=== PATIENT | female | born 1935 | race Caucasian/White ===

== ENCOUNTER 2017-10-28 17:16 | Inpatient (IN) | payer MEDICARE, OTHER ==
[~2017-10-28] VITALS: Ht 165.1 cm; Wt 80.7 kg
[~2017-10-28 17:16] MED LIST: ARIP5TAB10 PO; ATOR40TA PO; DARI7.5T PO; FLUO-120 PO; LORA1TAB PO; TEMA22.53 PO
[2017-10-28] MEDS ORDERED: IV NS 0.9% 500 ML BAG IV ONE (17:30)
--- NOTE | 2017-10-28 17:32 | NUR ---
PT ERIC FROM [facility]. PER REPORT, PT IS ALTERED. AAOX4 UPON ASSESSMENT. ALSO HERE FOR POSSIBLE UTI. NO LAB WORKS PROVIDED. GOWNED AND PLACED ON MONITOR. STABLE VITALS. AWAITING MD MELTON.
--- NOTE | 2017-10-28 17:34 | NUR ---
IV LINE STARTED BLOOD DRAWN AND SENT TO LAB.
--- NOTE | 2017-10-28 17:35 | NUR ---
DR ROSADO AT BEDSIDE FOR EVAL.
[2017-10-28 17:40] LABS: BASOPHILS # (AUTO) 0.1 /CMM (0.0-0.2); EOSINOPHILS # (AUTO) 0.3 /CMM (0.0-0.7); EOSINOPHILS % (AUTO) 2.1 % (0.0-6.0); HEMATOCRIT 44 % (33-45); HEMOGLOBIN 15.3 g/dL (11.5-14.8); LYMPHOCYTES # (AUTO) 2.8 /CMM (0.8-4.8); LYMPHOCYTES % (AUTO) 21.2 % (20.0-44.0); MEAN CORPUSCULAR HEMOGLOBIN 32 PG (26.0-33.0); MEAN CORPUSCULAR HGB CONC 35 g/dl (31.0-36.0); MEAN CORPUSCULAR VOLUME 91 fL (82-100); MONOCYTES # (AUTO) 0.9 /CMM (0.1-1.30); MONOCYTES % (AUTO) 6.9 % (2.0-12.0); NEUTROPHILS % (AUTO) 68.8 % (43.0-81.0); PLATELET COUNT (AUTO) 292 /CMM (150-450); RDW COEFFICIENT OF VARIATION 13.1 (11.5-15.0); RED BLOOD CELL COUNT(AUTO) 4.87 MIL/uL (4.0-5.2); WHITE BLOOD COUNT (AUTO) 13.1 K/uL (4.3-11.0)
[2017-10-28] MEDS ORDERED: PROP40TA7 PO (17:41)
[2017-10-28] MEDS ORDERED: SOLI5TAB2 PO (17:41)
[2017-10-28] MEDS ORDERED: AMLO5TAB2 PO (17:41)
[2017-10-28] MEDS ORDERED: TEMA15CA PO (17:41)
[2017-10-28] MEDS ORDERED: LURA40TA PO (17:41)
[2017-10-28 17:48] LABS: APPEARANCE,URINE Cloudy (CLEAR); BILIRUBIN,URINE Negative (NEGATIVE); BLOOD, URINE Negative Ery/uL (NEGATIVE); COLOR,URINE Yellow (YELLOW); KETONES,URINE Negative (NEGATIVE); LEUKOCYTE ESTERASE ,URINE Trace (NEGATIVE); NITRITE, URINE Positive (NEGATIVE); PH,URINE 6.5 (5.0-8.0); PROTEIN,URINE Negative (NEGATIVE); UGLUCOSE Negative (NEGATIVE); UROBILINOGEN,URINE 0.2 EU/dL (0.2)
[2017-10-28 18:00] LABS: CALCIUM, SERUM 9.5 mg/dL (8.5-10.1); CARBON DIOXIDE 26 mmol/L (21-32); CHLORIDE 102 mmol/L (98-107); CREATININE 0.9 mg/dL (0.6-1.3); GLUCOSE 101 mg/dL (74-106); POTASSIUM 4.5 mmol/L (3.5-5.1); SODIUM SERUM 135 mmol/L (136-145); UREA NITROGEN, BLOOD 14 mg/dL (7-18)
--- NOTE | 2017-10-28 18:01 | NUR ---
RADIOLOGY AT BEDSIDE FOR CHEST XRAY.
[2017-10-28 18:02] LABS: INR 1.04 (0.87-1.13)
[2017-10-28 18:06] LABS: ALANINE AMINOTRANSFERASE 59 U/L (12-78); ALBUMIN 3.6 g/dL (3.4-5.0); ALKALINE PHOSPHATASE 167 U/L (46-116); ASPARTATE AMINOTRANSFERASE 75 U/L (15-37); BILIRUBIN,DIRECT 0.1 mg/dL (0.0-0.2); BILIRUBIN,TOTAL 0.6 mg/dL (0.2-1.0); TOTAL PROTEIN, SERUM 8.7 g/dL (6.4-8.2)
[2017-10-28 18:08] LABS: TROPONIN I < 0.017 ng/mL (0.00-0.056)
[2017-10-28 18:10] LABS: BACTERIA,URINE Many /HPF (None Seen); RBC,URINE 0-2 /HPF (0-2)
[2017-10-28 18:11] LABS: SQUAMOUS EPITHELIAL CELL,UR Few /HPF (None Seen)
--- NOTE | 2017-10-28 18:22 | NUR ---
REPORT GIVEN TO CHRISTINA. PT AWAITING TRANSFER TO FLOOR.
[2017-10-28] MEDS ORDERED: CEFTRIAXONE 1 G in IV D5W 50 ML IV SCH (19:00)
[2017-10-28] MEDS ORDERED: CEFTRIAXONE 1 G VIAL ONE (19:02)
--- NOTE | 2017-10-28 19:10 | NUR ---
CALLED [employer] GENERAL REPAIR MECHANIC WAS PAGED.
--- NOTE | 2017-10-28 19:43 | NUR ---
CALLED [employer], INTERPRETATIVE DANCER WAS PAGED.
[2017-10-28 20:10] VITALS: BP 164/66
--- NOTE | 2017-10-28 20:10 | NUR ---
RN NOTES RECEIVED PATIENT FROM ER FOR DX. AMS. PATIENT AO X 3, ABLE TO MAKE NEEDS KNOWN. AMBULATORY. SR HR 65. IV SITE PATENT, INTACT; FLUSHED. SKIN INTACT. SAFETY REMINDERS GIVEN. ORIENTED TO ROOM. ON LOW BED WITH BILATERAL UPPER SIDE RAILS UP. CALL DUNHAM WITHIN EASY REACH. WILL CONTINUE TO MONITOR.
[2017-10-28] MEDS ORDERED: ZOLPIDEM TARTRATE 5 MG TABLET PO PRN (21:00)
[2017-10-28] MEDS ORDERED: ONDANSETRON HCL/PF 4 MG/2 ML VIAL IVP PRN (21:00)
[2017-10-28] MEDS ORDERED: HYDROCODONE/APAP 5/325MG 1 EACH TABLET PO PRN (21:00)
[2017-10-28] MEDS ORDERED: MAG HYDROX/AL HYDROX/SIMETH 30 ML UDC PO PRN (21:00)
[2017-10-28] MEDS ORDERED: ACETAMINOPHEN 325 MG TABLET PO PRN (21:00)
[2017-10-28] MEDS ORDERED: Z GUARD REMEDY 2 OZ OINT TP PRN (21:00)
[2017-10-28] MEDS ORDERED: PROPRANOLOL HCL 40 MG TABLET PO SCH (21:00)
[2017-10-28] MEDS ORDERED: SOLIFENACIN SUCCINATE 5 MG TABLET PO SCH (22:00)
[2017-10-28] MEDS: TEMAZEPAM 15 MG CAPSULE PO SCH (22:17)
[2017-10-28] MEDS: ENOXAPARIN SODIUM 40 MG/0.4 ML DISP.SYRIN SQ SCH (22:21)
--- NOTE | 2017-10-28 23:00 | NUR ---
RN NOTES VERIFIED BY FIRE CONTROL TECHNICIAN THAT [facility] IS NOT AVAILABLE.
[2017-10-29] VITALS: BP 122/61
[2017-10-29 04:00] VITALS: BP 137/66
--- NOTE | 2017-10-29 06:00 | NUR ---
RN NOTES PATIENT ASLEEP, AROUSABLE. RESPIRATIONS EVEN. NO SIGNS OF PAIN NOTED. DUE MEDS GIVEN WITH NO ASE NOTED. NEEDS ATTENDED. ESCORTED TO BATHROOM NEEDED FOR SAFETY. SAFETY PRECAUTIONS AND COMFORT MEASURES IN PLACE. WILL GIVE REPORT TO DAY SHIFT FOR CONTINUITY OF CARE.
[2017-10-29 07:43] LABS: BASOPHILS # (AUTO) 0.1 /CMM (0.0-0.2); BASOPHILS % (AUTO) 0.7 % (0.0-2.0); EOSINOPHILS # (AUTO) 0.2 /CMM (0.0-0.7); EOSINOPHILS % (AUTO) 2.3 % (0.0-6.0); HEMATOCRIT 42 % (33-45); HEMOGLOBIN 14.5 g/dL (11.5-14.8); LYMPHOCYTES # (AUTO) 2.6 /CMM (0.8-4.8); LYMPHOCYTES % (AUTO) 24.4 % (20.0-44.0); MEAN CORPUSCULAR HEMOGLOBIN 32 PG (26.0-33.0); MEAN CORPUSCULAR HGB CONC 35 g/dl (31.0-36.0); MEAN CORPUSCULAR VOLUME 92 fL (82-100); MONOCYTES % (AUTO) 8.9 % (2.0-12.0); NEUTROPHILS # (AUTO) 6.8 /CMM (1.8-8.9); NEUTROPHILS % (AUTO) 63.7 % (43.0-81.0); PLATELET COUNT (AUTO) 272 /CMM (150-450); RDW COEFFICIENT OF VARIATION 13.3 (11.5-15.0); RED BLOOD CELL COUNT(AUTO) 4.56 MIL/uL (4.0-5.2); WHITE BLOOD COUNT (AUTO) 10.7 K/uL (4.3-11.0)
[2017-10-29 07:52] LABS: CALCIUM, SERUM 8.7 mg/dL (8.5-10.1); CARBON DIOXIDE 22 mmol/L (21-32); CHLORIDE 105 mmol/L (98-107); CREATININE 0.8 mg/dL (0.6-1.3); GLUCOSE 99 mg/dL (74-106); PHOSPHORUS 3.7 mg/dL (2.5-4.9); POTASSIUM 3.8 mmol/L (3.5-5.1); SODIUM SERUM 138 mmol/L (136-145); UREA NITROGEN, BLOOD 12 mg/dL (7-18)
[2017-10-29 07:53] LABS: CHOLESTEROL 149 mg/dL (<200); HDL CHOLESTEROL 41 mg/dL (40-60); LDL 96 mg/dL (0-99); TRIGLYCERIDES 84 mg/dL (30-150)
[2017-10-29 08:00] VITALS: BP_SYST 142; BP_DIAS 52; BP_DIAS 96
--- NOTE | 2017-10-29 08:03 | NUR ---
RN INITIAL NOTE PATIENT RECEIVED IN BED RESTING. EASILY AROUSED. ABLE TO MAKE NEEDS KNOWN. NO S/S OF PAIN OR DISCOMFORT. DENIES PAIN AT THIS TIME. SINUS RHYTHM ON TELE MONITOR. SKIN IS WARM AND DRY TO TOUCH. IV SITE FLUSHED, PATENT. SAFETY PRECAUTIONS IN PLACE: BED IN LOCKED, LOW POSITION WITH TWO SIDE RAILS UP. CALL LIGHT AND BELONGINGS WITHIN EASY REACH. WILL CONTINUE TO MONITOR.
[2017-10-29] MEDS: PROPRANOLOL HCL 40 MG TABLET PO SCH ×2 (08:55→17:50)
[2017-10-29] MEDS: ATORVASTATIN 40 MG TABLET PO SCH (08:55)
[2017-10-29] MEDS: FLUOXETINE HCL 20 MG CAPSULE PO SCH (08:55)
[2017-10-29] MEDS: IV NS 0.9% 1,000 ML IV PRN ×2 (08:56→23:51)
[2017-10-29] MEDS: AMLODIPINE BESYLATE 5 MG TABLET PO SCH (08:56)
[2017-10-29 12:00] VITALS: BP 139/68
[2017-10-29 16:00] VITALS: BP 138/55
[2017-10-29] MEDS: OXYBUTYNIN CHLORIDE 5 MG TABLET PO SCH (17:51)
--- NOTE | 2017-10-29 19:30 | NUR ---
CORRECTIONAL LIEUTENANT OPENING NOTES RECEIVED REPORT FROM JAMMIE Arita RN. PATIENT A/A/O X2, ABLE TO MAKE SOME NEEDS KNOWN. BREATHING EVEN & UNLABORED, TOLERATING ROOM AIR. DENIES SOB OR DIFFICULTY BREATHING. ON TELE SINUS GT IN THE 50S. SKIN WARM, DRY & INTACT. RIGHT AC IV #20 NOTED W/ INFILTRATION. WILL REMOVE & START NEW SITE. DENIES ANY PAIN OR DISCOMFORT @ THIS TIME. SAFETY MEASURES IN PLACE W/ SIDE RAILS UP, BED LOCKED & IN LOWEST POSITION & CALL LIGHT WITHIN REACH. WILL CONTINUE TO MONITOR.
[2017-10-29 20:00] VITALS: BP 133/66
--- NOTE | 2017-10-29 20:24 | NUR ---
RN NOTES RIGHT AC IV REMOVED & STARTED NEW IV ON LEFT AC GAUGE 20. FLUSHING WELL W/ GOOD BLOOD RETURN. IVF NS @ 75 ML/HR RE-STARTED. PATIENT TOLERATED WELL.
[2017-10-29] MEDS: TEMAZEPAM 15 MG CAPSULE PO SCH (21:46)
[2017-10-29] MEDS: ENOXAPARIN SODIUM 40 MG/0.4 ML DISP.SYRIN SQ SCH (21:46)
[2017-10-30] VITALS: BP 112/50
[2017-10-30 04:00] VITALS: BP 129/72
--- NOTE | 2017-10-30 06:24 | NUR ---
RN NOTES PATIENT REFUSED BATH. PER PATIENT, SHE WANTS TO WAIT UNTIL AFTER BREAKFAST. ABLE TO AMBULATE TO BATHROOM W/ STANDBY ASSIST.
--- NOTE | 2017-10-30 07:15 | NUR ---
RN NOTES: PATIENT RESTING IN BED. AOX2, NO FACIAL GRIMACING NOTED. NO SOB ON ROOM AIR. LEFT AC IV PATENT AND INTACT. BED IN LOWEST LOCKED POSITION. CALL LIGHT WITHIN REACH, PATIENT SR 77 ON MONITOR
[2017-10-30 08:00] VITALS: BP 133/51
[2017-10-30] MEDS: AMLODIPINE BESYLATE 5 MG TABLET PO SCH (09:00)
[2017-10-30] MEDS: PROPRANOLOL HCL 40 MG TABLET PO SCH ×2 (09:00→16:20)
[2017-10-30] MEDS: ATORVASTATIN 40 MG TABLET PO SCH (09:04)
[2017-10-30] MEDS: OXYBUTYNIN CHLORIDE 5 MG TABLET PO SCH ×2 (09:05→16:23)
[2017-10-30] MEDS: FLUOXETINE HCL 20 MG CAPSULE PO SCH (09:05)
[2017-10-30 12:00] VITALS: BP 137/54
[2017-10-30] MEDS: LEVOFLOXACIN 500 MG /D5W 100ML 500 MG in PREMIX 1 EA IV SCH (12:15)
[2017-10-30 16:00] VITALS: BP 116/64
--- NOTE | 2017-10-30 18:49 | NUR ---
RN NOTES: PATIENT RESTING IN BED. AOX2, NO FACIAL GRIMACING NOTED. NO SOB ON ROOM AIR. LEFT AC IV PATENT AND INTACT. BED IN LOWEST LOCKED POSITION. CALL LIGHT WITHIN REACH, PATIENT SR 62, PATIENT ENCOURAGED TO TURN AND REPOSITION EVERY 2 HOURS, KEPT CLEAN AND DRY. WILL ENDORSE TO NEXT SHIFT
--- NOTE | 2017-10-30 19:30 | NUR ---
TELE1/RN RECEIVE PATIENT AWAKE, ALERT, ORIENTED, COMFORTABLE, NO C/O PAIN, NO DISTRESS NOTE, CALL LIGHT IN REACH, WILL CONTINUE TO MONITOR.
[2017-10-30 20:00] VITALS: BP 151/74
[2017-10-30] MEDS: TEMAZEPAM 15 MG CAPSULE PO SCH (21:40)
[2017-10-30] MEDS: ENOXAPARIN SODIUM 40 MG/0.4 ML DISP.SYRIN SQ SCH (21:40)
[2017-10-31] VITALS: BP 116/50
--- NOTE | 2017-10-31 00:27 | NUR ---
TELE1/RN PATIENT IS SLEEPING AT THIS TIME, EASILY AROUSABLE, APPEAR COMFORTABLE, NO SIGNS OF DISTRESS NOTED, CALL LIGHT IN REACH. WILL CONTINUE TO MONITOR.
[2017-10-31 05:17] VITALS: BP 114/45
--- NOTE | 2017-10-31 07:30 | NUR ---
PT RECEIVED RESTING COMFORTABLY IN BED WITH EYES CLOSED. NO S/S OR C/O PAIN OR DISTRESS NOTED. SIDE RAILS UP X2, CALL LIGHT LEFT WITHIN REACH. WILL CONTINUE PLAN OF CARE.
[2017-10-31 08:00] VITALS: BP 135/60
[2017-10-31] MEDS: OXYBUTYNIN CHLORIDE 5 MG TABLET PO SCH ×2 (08:26→16:17)
[2017-10-31] MEDS: FLUOXETINE HCL 20 MG CAPSULE PO SCH (08:26)
[2017-10-31] MEDS: AMLODIPINE BESYLATE 5 MG TABLET PO SCH (08:26)
[2017-10-31] MEDS: ATORVASTATIN 40 MG TABLET PO SCH (08:26)
[2017-10-31] MEDS: PROPRANOLOL HCL 40 MG TABLET PO SCH ×2 (08:27→16:17)
[2017-10-31] MEDS: LEVOFLOXACIN 500 MG /D5W 100ML 500 MG in PREMIX 1 EA IV SCH (12:27)
[2017-10-31] MEDS ORDERED: LEVO500T75 PO (14:32)
[2017-10-31 16:00] VITALS: BP 131/75
[2017-10-31 16:17] VITALS: BP 131/75
--- NOTE | 2017-10-31 18:13 | NUR ---
PT TRANSFERRED TO [facility]ED [facility]IVING [facility]AC[facility]. DISCHARGE INSTRUCTIONS GIVEN ORDERED. ENCOURAGED TO FOLLOW UP WITH PMD INSTRUCTED. ALL QUESTIONS AND CONCERNS ADDRESSED. PATIENT VERBALIZED UNDERSTANDING. MEDICATION RECONCILIATION FORM COMPLETED AND COPY GIVEN TO PATIENT. IV REMOVED WITH CATHETER INTACT, PRESSURE DRESSING APPLIED. PATIENT TAKEN TO VEHICLE VIA GURNEY WITH ALL PERSONAL BELONGINGS, ACCOMPANIED BY STAFF. NO DISTRESS NOTED AT TIME OF DEPARTURE.
== END 2017-10-31 17:22 | DRG 689 ==
LOC: ER 17:18 → TELE1 18:35 → MEDSG1 10-31 10:40
PROVIDERS: ADMIT Internal Medicine; ATTEND Internal Medicine
DX: N39.0 Urinary tract infection, site not specified (principal); G93.41 Metabolic encephalopathy; E87.1 Hypo-osmolality and hyponatremia; B96.20 Unspecified Escherichia coli [E. coli] as the cause of diseases classified elsewhere; E03.9 Hypothyroidism, unspecified; E78.5 Hyperlipidemia, unspecified; I10 Essential (primary) hypertension; D72.829 Elevated white blood cell count, unspecified
CPT/HCPCS: 36415; 71045-TC; 80048-TC; 80061-TC; 80076-TC; 81000-TC; 83605-TC; 83735-TC; 84100-TC; 84484-TC; 85025-TC; 85730-TC; 87040-TC; 87081-TC; 87086-TC; 87186-TC; A4216; A4606; J0696; J1650; J1956; J7030; J7040; J7060; Z7610

== ENCOUNTER 2021-09-17 02:19 | Inpatient (IN) | payer MEDICARE, OTHER ==
[~2021-09-17] VITALS: Ht 165.1 cm; Wt 70.3 kg
[~2021-09-17 02:19] MED LIST changes: +ACET-868 PO; +AMLO-212 PO; -ARIP5TAB10 PO; -DARI7.5T PO; -FLUO-120 PO; +FLUO20CA42 PO; +LEVO50TA8 PO; -LORA1TAB PO; +LURA40TA PO; +MAG30ORA PO; +PROP40TA7 PO; +SOLI5TAB2 PO; +TEMA15CA PO; -TEMA22.53 PO
--- NOTE | 2021-09-17 02:31 | NUR ---
Pt bibpa c/o possible covid exposure. Pt aaox4 breathing evenly and unlabored. Pt denies complaints. Pt attached to monitor and pox.
--- NOTE | 2021-09-17 02:49 | NUR ---
COVID SWAB SENT TO LAB
[2021-09-17 02:55] LABS: BASOPHILS % (AUTO) 0.6 % (0.0-2.0); EOSINOPHILS % (AUTO) 4.7 % (0.0-6.0); HEMATOCRIT 36 % (33-45); HEMOGLOBIN 11.9 g/dL (11.5-14.8); LYMPHOCYTES # (AUTO) 3.4 K/uL (0.8-4.8); MEAN CORPUSCULAR HGB CONC 34 g/dl (31.0-36.0); MEAN CORPUSCULAR VOLUME 96 fL (82-100); MONOCYTES # (AUTO) 0.9 K/uL (0.1-1.30); MONOCYTES % (AUTO) 10.8 % (2.0-12.0); NEUTROPHILS # (AUTO) 3.5 K/uL (1.8-8.9); NEUTROPHILS % (AUTO) 42.9 % (43.0-81.0); PLATELET COUNT (AUTO) 285 K/uL (150-450); RED BLOOD CELL COUNT(AUTO) 3.71 MIL/uL (4.0-5.2); WHITE BLOOD COUNT (AUTO) 8.2 K/uL (4.3-11.0)
[2021-09-17 03:29] LABS: CALCIUM, SERUM 9.6 mg/dL (8.5-10.1); CARBON DIOXIDE 32 mmol/L (21-32); CHLORIDE 103 mmol/L (98-107); GLUCOSE 131 mg/dL (74-106); POTASSIUM 3.9 mmol/L (3.5-5.1); SODIUM SERUM 141 mmol/L (136-145); UREA NITROGEN, BLOOD 19 mg/dL (7-18)
[2021-09-17] MEDS ORDERED: ALBUTEROL SULFATE 8 GM HFA.AER.AD IH PRN (04:00)
[2021-09-17] MEDS ORDERED: MAG HYDROX/AL HYDROX/SIMETH 30 ML UDC PO PRN (04:00)
--- NOTE | 2021-09-17 04:00 | NUR ---
Pt sleeping, breathing evenly and unlabored
--- NOTE | 2021-09-17 06:24 | NUR ---
Patient is resting comfortably in bed with eyes closed. Easily aroused. VSS
[2021-09-17] MEDS: LEVOTHYROXINE SODIUM 50 MCG TABLET PO SCH (07:30)
--- NOTE | 2021-09-17 07:31 | NUR ---
GAVE REPORT TO IZZY MARTINEZ FOR [facility]
[2021-09-17] MEDS ORDERED: LEVOTHYROXINE SODIUM 50 MCG TABLET ONE (07:33)
[2021-09-17] MEDS: AMLODIPINE BESYLATE 5 MG TABLET PO SCH ×2 (10:00→18:45)
[2021-09-17] MEDS: PROPRANOLOL HCL 40 MG TABLET PO SCH ×2 (10:00→18:45)
[2021-09-17] MEDS: ATORVASTATIN 40 MG TABLET PO SCH (10:00)
[2021-09-17] MEDS: OXYBUTYNIN CHLORIDE 5 MG TABLET PO SCH ×2 (10:00→18:45)
[2021-09-17] MEDS: FLUOXETINE HCL 20 MG CAPSULE PO SCH (10:00)
[2021-09-17] MEDS ORDERED: AMLODIPINE BESYLATE 5 MG TABLET ONE ×2 (10:16→18:44)
[2021-09-17] MEDS ORDERED: ATORVASTATIN 10 MG TABLET ONE (10:17)
[2021-09-17] MEDS ORDERED: PROPRANOLOL HCL 10 MG TABLET ONE ×3 (10:21→18:44)
[2021-09-17] MEDS ORDERED: OXYBUTYNIN CHLORIDE 5 MG TABLET ONE ×2 (10:40→18:44)
--- NOTE | 2021-09-17 14:20 | NUR ---
PATIENT RESTING COMFORTABLY IN BED, EASILY AROUSABLE
--- NOTE | 2021-09-17 20:15 | NUR ---
PT SLEEPING, ATTACHED TO MONITOR AND POX.
--- NOTE | 2021-09-17 20:38 | NUR ---
GAVE REPORT TO IZZY MENON FOR [facility]
--- NOTE | 2021-09-17 21:27 | NUR ---
Mary Kay christiansen in ED - 09/17/21 at 2247 by JOSESITO ATTEMPTED TO GIVE REPORT. RN WITH PT. WILL CALL ME BACK
--- NOTE | 2021-09-17 23:10 | NUR ---
RN NOTES ADMITTED A 85 Y/O FEMALE FROM ER [facility]IA [facility] A/O X2-3 WITH PERIODS OF CONFUSION. WITH IV ACCESS ON L AC #18 PATENT FLUSHES WELL. VITAL SIGNS TAKEN AND RECORDED AFEBRILE. TRANSFER TO BED SAFELY. PATIENT NOT IN DISTRESS NO SOB AT THIS TIME
[2021-09-17] MEDS: TEMAZEPAM 15 MG CAPSULE PO SCH (23:22)
[2021-09-17] MEDS: ACETAMINOPHEN 325 MG TABLET PO PRN (23:28)
--- NOTE | 2021-09-17 23:40 | NUR ---
RN NOTES BODY CHECK DONE. ALL BELONGING CHECK. DUE MEDS GIVEN ORDERED. CLEAN AND CHANGE TO HOSPITAL GOWN. PATIENT REMAINS IN STBLE CONDITION. WILL CONTINUE TO MONITOR
[2021-09-18] VITALS: BP 152/65
[2021-09-18 04:00] VITALS: BP 130/74
--- NOTE | 2021-09-18 06:51 | NUR ---
RN NOTES PATIENT REMAINS IN STABLE CONDITION, NO SOB NO DISTRESS AFEBRILE. ALL DUE MEDS GIVEN ORDERED. FREQUENT VISUAL MONITORING RENDERED. PATIENT IN ROOM AIR TOLERATING WELL SATING 96%. ALL SAFETY MEASURES IN PLACE AT ALL TIMES. HOB ELEVATED, CALL LIGHT WITHIN REACH. WILL CONTINUE TO MONITOR.
[2021-09-18 07:37] LABS: BASOPHILS % (AUTO) 0.5 % (0.0-2.0); EOSINOPHILS % (AUTO) 2.9 % (0.0-6.0); HEMATOCRIT 36 % (33-45); HEMOGLOBIN 11.9 g/dL (11.5-14.8); LYMPHOCYTES # (AUTO) 3.3 K/uL (0.8-4.8); LYMPHOCYTES % (AUTO) 34.5 % (20.0-44.0); MEAN CORPUSCULAR HGB CONC 33 g/dl (31.0-36.0); MEAN CORPUSCULAR VOLUME 96 fL (82-100); MONOCYTES % (AUTO) 10.9 % (2.0-12.0); NEUTROPHILS # (AUTO) 4.9 K/uL (1.8-8.9); NEUTROPHILS % (AUTO) 51.2 % (43.0-81.0); PLATELET COUNT (AUTO) 318 K/uL (150-450); RED BLOOD CELL COUNT(AUTO) 3.73 MIL/uL (4.0-5.2); WHITE BLOOD COUNT (AUTO) 9.5 K/uL (4.3-11.0)
[2021-09-18 07:58] LABS: BILIRUBIN,TOTAL 0.3 mg/dL (0.2-1.0); CALCIUM, SERUM 8.5 mg/dL (8.5-10.1); CREATININE 0.9 mg/dL (0.6-1.3); POTASSIUM 3.8 mmol/L (3.5-5.1); TOTAL PROTEIN, SERUM 7.6 g/dL (6.4-8.2)
[2021-09-18 08:00] VITALS: BP 158/58
[2021-09-18] MEDS: PROPRANOLOL HCL 40 MG TABLET PO SCH ×2 (09:00→17:03)
[2021-09-18] MEDS: ATORVASTATIN 40 MG TABLET PO SCH (09:21)
[2021-09-18] MEDS: OXYBUTYNIN CHLORIDE 5 MG TABLET PO SCH ×2 (09:21→17:02)
[2021-09-18] MEDS: AMLODIPINE BESYLATE 5 MG TABLET PO SCH ×2 (09:22→17:03)
[2021-09-18] MEDS: LEVOTHYROXINE SODIUM 50 MCG TABLET PO SCH (09:22)
[2021-09-18] MEDS: FLUOXETINE HCL 20 MG CAPSULE PO SCH (09:46)
[2021-09-18] MEDS: ACETAMINOPHEN 325 MG TABLET PO PRN (11:00)
[2021-09-18 12:00] VITALS: BP 137/71
--- NOTE | 2021-09-18 19:10 | NUR ---
RN NOTES RECEIVED REPORT FROM MORNING RN. PATIENT A/O X 2 WITH PERIODS OF CONFUSION. PATIENT IN BED AWAKE WATCHING TV. NO DISTRESS NO SOB AT THIS TIME. ON ROOM AIR SATING 96%.VITAL SIGNS TAKEN AND RECORDED. ALL SAFETY MEASURES IN PLACE AT ALL TIMES. SONA LIGHT WITHIN REACH. BE ON LOWEST POSITION AND LOCKED. WILL CLOSELY MONITOR THE PATIENT.
[2021-09-18 21:00] VITALS: BP 136/55
[2021-09-18] MEDS: TEMAZEPAM 15 MG CAPSULE PO SCH (22:25)
[2021-09-19 05:00] VITALS: BP 132/71
--- NOTE | 2021-09-19 06:42 | NUR ---
RN NOTES PATIENT IN BED ASLEEP, PATIENT REMAINS STABLE NO SIGNIFICANT CHANGES IN HEALTH CONDITION THIS SHIFT. ALL DUE MEDS GIVEN ORDERED. KEPT CLEAN AND DRY AT ALL TIMES. ALL NEEDS ATTENDED PROMPTLY. ALL SAFETY MEASURES IN PLACE. HOB ELEVATED. CALL LIGHT WITHIN REACH. BED ON LOWEST POSITION AND LOCKED. FREQUENT VISUAL MONITORING RENDERED. ENDORSED
--- NOTE | 2021-09-19 07:45 | NUR ---
RN OPENING NOTES RECEIVED PATIENT ON BED, SLEEPING A/O X 2 RESPONDED TO NAME, RESPIRATORY EVEN AND UNLABORED, ON RA WITH NO SOB NOTED, DENIES PAIN, NO S/S OF DISTRESS NOTED, PATIENT REFUSES IV ACCESS . SAFETY PROTOCOL IN PLACE BED IN LOWEST POSITION, LOCKED, SIDE RAILS UP, BED ALARM ARMED. CALL LIGHT WITH IN REACH
[2021-09-19 08:00] VITALS: BP 133/58
[2021-09-19] MEDS: OXYBUTYNIN CHLORIDE 5 MG TABLET PO SCH ×2 (08:33→16:32)
[2021-09-19] MEDS: ATORVASTATIN 40 MG TABLET PO SCH (08:33)
[2021-09-19] MEDS: AMLODIPINE BESYLATE 5 MG TABLET PO SCH ×2 (08:34→16:30)
[2021-09-19] MEDS: LEVOTHYROXINE SODIUM 50 MCG TABLET PO SCH (08:34)
[2021-09-19] MEDS: FLUOXETINE HCL 20 MG CAPSULE PO SCH (08:34)
[2021-09-19] MEDS: PROPRANOLOL HCL 40 MG TABLET PO SCH ×2 (08:39→16:31)
--- NOTE | 2021-09-19 10:52 | NUR ---
RN NOTE ROUNDS MADE, PATIENT IN BED IN A HIGH FOWLERS POSITION.PATIENT ON RA WITH NO SOB OR PAIN EXPRESSED, SAFETY PROTOCOL IN PACE, BED IN LOWEST POSITION, 2 SIDE RAILS UP AND CALL LIGHT WITHIN REACH.
[2021-09-19] MEDS ORDERED: LEVO75TA7 PO (15:43)
[2021-09-19] MEDS ORDERED: IBUP-1955 PO (15:43)
[2021-09-19] MEDS ORDERED: OLAN7.5T3 PO (15:43)
[2021-09-19] MEDS ORDERED: OXYB5TAB16 PO (15:43)
[2021-09-19] MEDS ORDERED: DOCU-141 PO (15:43)
[2021-09-19] MEDS ORDERED: VENL50TA4 PO (15:43)
[2021-09-19] MEDS ORDERED: MECL-159 PO (15:43)
[2021-09-19] MEDS ORDERED: LAMO100T17 PO (15:43)
[2021-09-19] MEDS ORDERED: ZOLP5TAB8 PO (15:43)
[2021-09-19 16:00] VITALS: BP 100/55
--- NOTE | 2021-09-19 18:20 | NUR ---
RN CLOSING NOTE PATIENT REMAINS IN ROOM IN NO SIGNS OF RESPIRATORY DISTRESS OR PAIN, PT ON RA WITH O2 > 95% SPO2. SAFETY MEASURES IMPLEMENTED, BED IN LOWEST POSITION, LOCKED, SIDE RAILS UP, CALL LIGHT WITHIN REACH. ALL NEEDS AND ORDERS ADDRESSED DURING THE. PATIENT KEPT CLEAN AND COMFORTABLE WITHIN THE SHIFT. PATIENT ENDORSED TO INDUSTRIAL MACHINE OPERATOR RN FOR HALIMA
--- NOTE | 2021-09-19 19:45 | NUR ---
RN OPENING NOTES: RECEIVED PATIENT IN BED ALERT, ORIENTED X2 AND VERBALLY RESPONSIVE. ON ROOM AIR. NO SOB NOTED. BREATHING EVEN AND UNLABORED. NO IV ACCESS DUE TO PATIENT'S REFUSAL. NO C/O PAIN OR DISCOMFORT. NO ACUTE DISTRESS NOTED. CONTINENT ON BOWEL AND BLADDER. PATIENT HAS BEDSIDE COMMODE, SHE PREFERS TO USE RESTROOM. ALL SAFETY MEASURES ON PLACE. BOTH BED SIDE RAILS UP. PLACE CALL LIGHT WITH IN REACH. WILL CONTINUE TO MONITOR.
[2021-09-19 20:00] VITALS: BP 135/73
[2021-09-19] MEDS: TEMAZEPAM 15 MG CAPSULE PO SCH (21:31)
[2021-09-20 04:00] VITALS: BP 138/76
--- NOTE | 2021-09-20 06:45 | NUR ---
RN CLOSING NOTES: PATIENT IN BED SLEEPING BUT EASILY AROUSABLE. ALERT, ORIENTED X2 AND VERBALLY RESPONSIVE. ON ROOM AIR, O2 SAT 100% BREATHING EVEN AND UNLABORED. NO IV ACCESS DUE TO PATIENT'S REFUSAL. NO C/O PAIN OR DISCOMFORT. NO ACUTE DISTRESS NOTED.. CONTINENT ON BOWEL AND BLADDER. ABLE TO USE THE RESTROOM WITH ASSIST. ALL SAFETY MEASURES ON PLACE. BOTH BED SIDE RAILS UP. BED IN LOW POSITION AND LOCKED. PLACE CALL LIGHT WITH IN REACH. WILL ENDORSE TO MORNING SHIFT NURSE.
[2021-09-20] MEDS: LEVOTHYROXINE SODIUM 50 MCG TABLET PO SCH (07:05)
--- NOTE | 2021-09-20 07:42 | NUR ---
RN NOTES PT RECEIVED IN BED. PT IS RA TOLERATING WELL SAT 96% WITH NO SIGNS OF LABORED BREATHING OR DISTRESS. A/OX2 WITH EPISODES OF CONFUSION PT IS MS WITH BRP AND AMBULATORY. PT IS ON CARDIAC LOW FAT DIET AND HAS NO IV ACCESS BECAUSE PT REFUSED. BED IS LOCKED IN LOWEST POSITION X2 GUARD RAILS UP, CALL D[place]HAM WITHIN REACH AND ALL HOSPITAL SAFETY PRECAUTIONS ARE IN PLACE. WILL CONTINUE TO MONITOR THIS SHIFT.
[2021-09-20] MEDS: PROPRANOLOL HCL 40 MG TABLET PO SCH ×2 (09:00→17:43)
[2021-09-20] MEDS: AMLODIPINE BESYLATE 5 MG TABLET PO SCH ×2 (09:00→17:43)
[2021-09-20] MEDS: OXYBUTYNIN CHLORIDE 5 MG TABLET PO SCH ×2 (09:06→17:43)
[2021-09-20] MEDS: FLUOXETINE HCL 20 MG CAPSULE PO SCH (09:16)
[2021-09-20] MEDS: ATORVASTATIN 40 MG TABLET PO SCH (09:16)
[2021-09-20 12:00] VITALS: BP 116/55
[2021-09-20] MEDS: ACETAMINOPHEN 325 MG TABLET PO PRN (13:02)
[2021-09-20 17:43] VITALS: BP 145/67
--- NOTE | 2021-09-20 18:30 | NUR ---
RN DC NOTE PT DC'D TO ASSISTED FACILITY IN STABLE CONDITION. DC INSTRUCTIONS GIVEN AND EXPLAINED TO PT; VERBALIZED UNDERSTANDING. ALL PAPER WORK SIGNED AND COMPLETED. ALL BELONGINGS SENT WITH PT. PT HAD NO IV ACCESS. PT TO F/U WITH PCP WITHIN ONE TO TWO WEEKS PER FACILITY PROTOCOL. REPORT GIVEN TO [id number].
== END 2021-09-20 18:30 | DRG 951 ==
LOC: ER 02:25 → TRANSITION 03:43 → TELE1 20:23 → MEDSG1 09-18 10:45
PROVIDERS: ADMIT Internal Medicine; ATTEND Internal Medicine
DX: Z20.822 Contact with and (suspected) exposure to COVID-19 (principal); N17.0 Acute kidney failure with tubular necrosis; E78.5 Hyperlipidemia, unspecified; I10 Essential (primary) hypertension; F32.9 Major depressive disorder, single episode, unspecified; E03.9 Hypothyroidism, unspecified
CPT/HCPCS: 36415; 71045-TC; 80048-TC; 80053-TC; 83615-TC; 85025-TC; 85730-TC; 86140-TC; 87081-TC; G0378; U0003

== ENCOUNTER 2023-01-27 18:57 | Inpatient (IN) | payer MEDICARE, OTHER ==
[~2023-01-27] VITALS: Ht 165.1 cm; Wt 74.8 kg
[~2023-01-27 18:57] MED LIST changes: -ATOR40TA PO; +DOCU-141 PO; -FLUO20CA42 PO; +IBUP-1955 PO; +LAMO100T17 PO; -LEVO50TA8 PO; +LEVO75TA7 PO; -LURA40TA PO; -MAG30ORA PO; +MECL-159 PO; +OLAN7.5T3 PO; +OXYB5TAB16 PO; -PROP40TA7 PO; -SOLI5TAB2 PO; -TEMA15CA PO; +VENL50TA4 PO; +ZOLP5TAB8 PO
--- NOTE | 2023-01-27 19:20 | NUR ---
PT ON BED CC PER EMT CONFUSION AND CLAIMS THAT UTI PRESENT. AMBULATORY, NOT IN DISTRESS
--- NOTE | 2023-01-27 19:22 | NUR ---
MOVE SHEET SUBMITTED.
[2023-01-27] MEDS ORDERED: IV NS 0.9% 500 ML BAG IV ONE (19:30)
--- NOTE | 2023-01-27 20:00 | NUR ---
PATIENT SENT TO CT
--- NOTE | 2023-01-27 20:15 | NUR ---
RECEIVED PT IN ER BED 12. PT IS ALERT AND ORIENTED, FROM [facility]. AMBULATORY W/ ASSISTANCE. PT STATES "THE FACILITY WANTS TO MAKE SURE IM OK". DENIES ANY CHEST PAIN OR SOB. NO MEDICAL COMPLAINT. RR EVEN AND NON LABORED. CONNECTED TO MONITOR.
[2023-01-27 20:21] LABS: BASOPHILS # (AUTO) 0.1 K/uL (0.0-0.2); BASOPHILS % (AUTO) 0.7 % (0.0-2.0); EOSINOPHILS % (AUTO) 2.7 % (0.0-6.0); HEMATOCRIT 39 % (33-45); HEMOGLOBIN 12.6 g/dL (11.5-14.8); LYMPHOCYTES # (AUTO) 2.5 K/uL (0.8-4.8); LYMPHOCYTES % (AUTO) 25.4 % (20.0-44.0); MEAN CORPUSCULAR HGB CONC 32 g/dl (31.0-36.0); MEAN CORPUSCULAR VOLUME 91 fL (82-100); MONOCYTES # (AUTO) 0.8 K/uL (0.1-1.30); MONOCYTES % (AUTO) 8.4 % (2.0-12.0); NEUTROPHILS # (AUTO) 6.3 K/uL (1.8-8.9); NEUTROPHILS % (AUTO) 62.8 % (43.0-81.0); PLATELET COUNT (AUTO) 357 K/uL (150-450); RED BLOOD CELL COUNT(AUTO) 4.31 MIL/uL (4.0-5.2)
--- NOTE | 2023-01-27 20:25 | NUR ---
COVID SWAB COLLECTED AND SENT TO LAB
[2023-01-27 20:36] LABS: ALANINE AMINOTRANSFERASE 18 U/L (12-78); ALBUMIN 3.2 g/dL (3.4-5.0); ALKALINE PHOSPHATASE 139 U/L (46-116); ASPARTATE AMINOTRANSFERASE 25 U/L (15-37); BILIRUBIN,DIRECT 0.1 mg/dL (0.0-0.2); BILIRUBIN,TOTAL 0.3 mg/dL (0.2-1.0); CARBON DIOXIDE 27 mmol/L (21-32); CHLORIDE 107 mmol/L (98-107); GLUCOSE 122 mg/dL (74-106); POTASSIUM 3.6 mmol/L (3.5-5.1); SODIUM SERUM 144 mmol/L (136-145); TOTAL PROTEIN, SERUM 7.8 g/dL (6.4-8.2); UREA NITROGEN, BLOOD 13 mg/dL (7-18)
--- NOTE | 2023-01-27 20:40 | NUR ---
URINE COLLECTED AND SENT TO LAB
--- NOTE | 2023-01-27 20:51 | NUR ---
[facility] CALLED DATA ANALYTICS ARCHITECT PAGED.
[2023-01-27 21:14] LABS: BILIRUBIN,URINE NEGATIVE (NEGATIVE); COLOR,URINE YELLOW (YELLOW); LEUKOCYTE ESTERASE ,URINE 3+ (NEGATIVE); NITRITE, URINE NEGATIVE (NEGATIVE); PROTEIN,URINE NEGATIVE (NEGATIVE); UGLUCOSE NEGATIVE (NEGATIVE); UROBILINOGEN,URINE 0.2 EU/dL (0.2)
[2023-01-27] MEDS ORDERED: CEFTRIAXONE 1GM BAG (ER ONLY) 1 GM/50 ML PIGGYBACK IV ONE (21:30)
[2023-01-27] MEDS ORDERED: MAG HYDROX/AL HYDROX/SIMETH 30 ML UDC PO PRN (21:30)
[2023-01-27] MEDS ORDERED: ONDANSETRON HCL/PF 4 MG/2 ML VIAL IVP PRN (21:30)
[2023-01-27] MEDS ORDERED: ACETAMINOPHEN 325 MG TABLET PO PRN (21:30)
[2023-01-27] MEDS ORDERED: CEFTRIAXONE 1 G VIAL ONE (21:37)
[2023-01-27] MEDS ORDERED: IBUPROFEN 600 MG TABLET PO PRN (22:00)
[2023-01-27 22:18] LABS: BACTERIA,URINE Many /HPF (None Seen); WBC,URINE 51-80 /HPF (0-3)
[2023-01-27 22:19] LABS: SQUAMOUS EPITHELIAL CELL,UR Moderate /HPF (None Seen)
--- NOTE | 2023-01-27 22:32 | NUR ---
CALLED 3[facility], S/W IZZY GRANT PATIENT ER REPORT GIVEN. PATIENT WILL BE GOING RM [id number]#2.
[2023-01-27] MEDS ORDERED: OLANZAPINE 5 MG TABLET PO ONE (22:57)
--- NOTE | 2023-01-27 23:09 | NUR ---
PATIENT TRANSFERRED TO [facility] VIA ACLS
--- NOTE | 2023-01-27 23:50 | NUR ---
MS RN ADMITTING NOTE PATIENT WAS TRANSFERRED FROM ER TO [facility] - 2 AT 2315H; PATIENT IS A/O X 4, ABLE TO MAKE NEEDS KNOWN; STABLE ON ROOM AIR, BREATHING EVENLY AND NO S/S OF DISTRESS NOTED; NO COMPLAINTS OF PAIN AND DISCOMFORT AT THIS TIME; WITH IV ACCESSES ON LFA G#22 AND RFA G#22; ORIENTED TO STAFF AND ROOM; VITAL SIGNS TAKEN AND RECORDED; SKIN ASSESSMENT WAS DONE AND NOTED LEFT ARM ABRASION, PHOTOGRAPHED AND INSERTED INTO CHART; PATIENT'S BELONGINGS ACCOUNTED FOR; SAFETY MEASURES IMPLEMENTED, BED LOCKED IN LOWEST POSITION, SIDE RAILS UP X 2, CALL LIGHT AND TABLE WITHIN REACH; ENCOURAGED VERBALIZATION OF NEEDS; WILL CONTINUE TO MONITOR THROUGHOUT SHIFT
[2023-01-28] MEDS: ENOXAPARIN SODIUM 40 MG/0.4 ML DISP.SYRIN SQ SCH ×2 (00:10→21:46)
[2023-01-28] MEDS: IV NS 0.9% 1,000 ML IV PRN (04:36)
[2023-01-28 05:56] LABS: BASOPHILS # (AUTO) 0.1 K/uL (0.0-0.2); BASOPHILS % (AUTO) 0.5 % (0.0-2.0); EOSINOPHILS % (AUTO) 2.6 % (0.0-6.0); HEMATOCRIT 39 % (33-45); HEMOGLOBIN 12.6 g/dL (11.5-14.8); LYMPHOCYTES % (AUTO) 20.8 % (20.0-44.0); MEAN CORPUSCULAR HGB CONC 32 g/dl (31.0-36.0); MEAN CORPUSCULAR VOLUME 91 fL (82-100); MONOCYTES % (AUTO) 10.4 % (2.0-12.0); NEUTROPHILS # (AUTO) 6.5 K/uL (1.8-8.9); NEUTROPHILS % (AUTO) 65.7 % (43.0-81.0); PLATELET COUNT (AUTO) 308 K/uL (150-450); RED BLOOD CELL COUNT(AUTO) 4.29 MIL/uL (4.0-5.2); WHITE BLOOD COUNT (AUTO) 9.8 K/uL (4.3-11.0)
[2023-01-28 06:28] LABS: CALCIUM, SERUM 8.7 mg/dL (8.5-10.1); CREATININE 0.8 mg/dL (0.6-1.3); MAGNESIUM 2.1 mg/dL (1.8-2.4); PHOSPHORUS 3.3 mg/dL (2.5-4.9); POTASSIUM 3.6 mmol/L (3.5-5.1)
--- NOTE | 2023-01-28 07:20 | NUR ---
MS RN CLOSING NOTE PATIENT IS A/O X 4, ABLE TO MAKE NEEDS KNOWN; STABLE ON ROOM AIR, BREATHING EVENLY AND NO S/S OF DISTRESS NOTED; NO COMPLAINTS OF PAIN AND DISCOMFORT AT THIS TIME; WITH IV ACCESS AT RIGHT HAND G#22, INTACT, PATENT AND FLUSHING WELL; ADMINISTERED MEDICATIONS PRESCRIBED; PATIENT'S NEEDS ATTENDED; MONITORED PATIENT ACCORDINGLY; SAFETY MEASURES IMPLEMENTED, BED LOCKED IN LOWEST POSITION, SIDE RAILS UP X 2, CALL LIGHT AND TABLE WITHIN REACH; ENDORSED TO AM SHIFT NURSE FOR HALIMA.
--- NOTE | 2023-01-28 07:29 | NUR ---
MS RN OPENING NOTE RECEIVED PATIENT IN BED, AWAKE. A/O X 3-4, ABLE TO MAKE NEEDS KNOWN. NO C/O PAIN/DISCOMFORT AT THIS TIME. ON ROOM AIR, TOLERATING WELL. IV ACCESS IN RIGHT HAND #22G, C/D/I. SAFETY MEASURES IMPLEMENTED: BED LOCKED IN LOWEST POSITION, SIDE RAILS UP X 2, CALL LIGHT AND TRAY TABLE WITHIN EASY REACH. WILL CONTINUE TO MONITOR.
[2023-01-28] MEDS: LEVOTHYROXINE SODIUM 75 MCG TABLET PO SCH (07:52)
[2023-01-28 08:00] VITALS: BP 136/68
[2023-01-28] MEDS: OXYBUTYNIN CHLORIDE 5 MG TABLET PO SCH ×2 (08:26→16:08)
[2023-01-28] MEDS: DOCUSATE SODIUM 100 MG CAPSULE PO SCH ×2 (08:26→16:08)
[2023-01-28] MEDS: LamoTRIgine 100 MG TABLET PO SCH (08:26)
[2023-01-28] MEDS: VENLAFAXINE XR 150 MG CAP.SR.24H PO SCH (08:27)
[2023-01-28] MEDS: AMLODIPINE BESYLATE 5 MG TABLET PO SCH (08:27)
[2023-01-28 15:09] VITALS: BP 109/74
--- NOTE | 2023-01-28 18:44 | NUR ---
MS RN CLOSING NOTE PATIENT RESTING IN BED. A/O X 3-4, ABLE TO MAKE NEEDS KNOWN, FORGETFUL. NO C/O PAIN/DISCOMFORT WITHIN THE SHIFT. ON ROOM AIR, TOLERATING WELL. IV ACCESS IN RIGHT HAND #22G, C/D/I. NEEDS ATTENDED. SAFETY MEASURES IMPLEMENTED: BED LOCKED IN LOWEST POSITION, SIDE RAILS UP X 2, CALL LIGHT AND TRAY TABLE WITHIN EASY REACH. WILL ENDORSE HALIMA TO [employer]X VISUAL DESIGNER.
[2023-01-28 20:00] VITALS: BP 138/66
--- NOTE | 2023-01-28 20:00 | NUR ---
RECEIVED PATIENT IN BED, ALERT/ORIENTED X3, ROOM AIR, NO COMPLAIN OF PAIN, CONTINENT OF BOWEL AND BLADDER, AMBULATES WITH SUPERVISION. KEPT SAFE, WILL CONTINUE TO MONITOR
[2023-01-28] MEDS: CEFTRIAXONE 1 G in IV D5W 50 ML IV SCH (21:45)
--- NOTE | 2023-01-29 06:44 | NUR ---
ALERT/ORIENTED X3, FORGETFUL, STABLE ON ROOM AIR, NO COMPLAIN OF PAIN, CONTINENT, AMBULATES WITH MINIMAL ASSIST. CONTINUE ROCEPHIN, IVF. FALL PRECAUTION, SUPPORTIVE CARE.
--- NOTE | 2023-01-29 07:25 | NUR ---
MERCHANT MARINER OPENING NOTE PATIENT RECEIVED ASLEEP A/O X3, AWAKES TO VERBAL STIMULI AND TOUCH, VERY SLEEPY. ABLE TO ANSWER QUESTION/ REQUEST. ON ROOM AIR, BREATHING EVEN AND UNLABORED, WITH NO S/S OF SOB. CLEAR LUNG SOUNDS. PATIENT HAS HYPOACTIVE BOWEL SOUNDS, SLIGHT TENDERNESS. NO COMPLAINTS OF PAIN. IV ACCESS ON THE RIGHT HAND G#22 AND RAC G#22 INTACT AND PATENT, FLUSHING WELL. FALL AND SAFETY PRECAUTION ARE IN PLACE: BED AT THE LOWEST POSITION, LOCKED, SRx2,CALL LIGHT WITHIN REACH.
[2023-01-29 08:23] VITALS: BP 144/60
[2023-01-29] MEDS: AMLODIPINE BESYLATE 5 MG TABLET PO SCH (08:24)
[2023-01-29] MEDS: OXYBUTYNIN CHLORIDE 5 MG TABLET PO SCH ×2 (08:24→16:22)
[2023-01-29] MEDS: LamoTRIgine 100 MG TABLET PO SCH (08:25)
[2023-01-29] MEDS: VENLAFAXINE XR 150 MG CAP.SR.24H PO SCH (08:25)
[2023-01-29] MEDS: DOCUSATE SODIUM 100 MG CAPSULE PO SCH ×2 (08:25→16:22)
[2023-01-29] MEDS: LEVOTHYROXINE SODIUM 75 MCG TABLET PO SCH (08:25)
[2023-01-29 15:37] VITALS: BP 124/73
--- NOTE | 2023-01-29 18:36 | NUR ---
PARACHUTE OFFICER CLOSING NOTE PATIENT RESTING IN BED, A/O X2/3. ABLE TO MAKE NEEDS KNOWN. ON ROOM AIR, BREATHING EVEN AND UNLABORED, WITH NO S/S OF SOB. NO COMPLAINTS OF PAIN. MEDICATION ADMINISTERED SCHEDULED. PATIENT IV ACCESS ON RAC G#22, INTACT AND PATENT, FLUSHING WELL. FALL AND SAFETY PRECAUTION ARE IN PLACE: BED AT THE LOWEST POSITION, LOCKED, SRx2,CALL LIGHT WITHIN REACH.
--- NOTE | 2023-01-29 19:30 | NUR ---
MS RN OPENING NOTES RECEIVED PATIENT AWAKE IN BED. PATIENT IS A/O TIMES 2-3 WITH EPISODES OF CONFUSION. REORIENT THE PATIENT. ALL NEEDS ATTENDED. NO PAIN NOTED. NO SOB NOTED. NO DISTRESS NOTED. IV ACCESS ON THE RAC G # 22 INTACT AND RUNNING NS AT 75 ML/HR. AMBULATES WITH SUPERVISION. ALL SAFETY MEASURES IN PLACE. BED LOCKED IN THE LOWEST POSITION. CALL LIGHT AND TABLE IN EASY REACH. SIDE RAILS UP TIMES 2. BED ALARM ON. WILL CONTINUE TO MONITOR CLOSELY.
[2023-01-29 20:00] VITALS: BP 136/65
[2023-01-29] MEDS: CEFTRIAXONE 1 G in IV D5W 50 ML IV SCH (20:37)
[2023-01-29] MEDS: ENOXAPARIN SODIUM 40 MG/0.4 ML DISP.SYRIN SQ SCH (21:01)
[2023-01-30] MEDS: IV NS 0.9% 1,000 ML IV PRN (06:27)
[2023-01-30 07:00] VITALS: BP 150/75
--- NOTE | 2023-01-30 07:00 | NUR ---
MS RN CLOSING NOTES PATIENT AWAKE IN BED. PATIENT IS A/O TIMES 2-3 WITH EPISODES OF CONFUSION. REORIENT THE PATIENT. ALL NEEDS ATTENDED. NO PAIN NOTED. NO SOB NOTED. NO DISTRESS NOTED. IV ACCESS ON THE RAC G # 22 INTACT AND RUNNING NS AT 75 ML/HR. AMBULATES WITH SUPERVISION. ALL SAFETY MEASURES IN PLACE. BED LOCKED IN THE LOWEST POSITION. CALL LIGHT AND TABLE IN EASY REACH. SIDE RAILS UP TIMES 2. BED ALARM ON. WILL ENDORSE FOR HALIMA.
--- NOTE | 2023-01-30 07:05 | NUR ---
RN OPENING NOTE-- PATIENT AWAKE IN BED. PATIENT IS A/O TIMES 2-3 WITH EPISODES OF CONFUSION. REORIENTED THE PATIENT. ALL NEEDS ATTENDED. NO PAIN NOTED. NO SOB NOTED. NO DISTRESS NOTED. IV ACCESS ON THE RAC G # 22 INTACT AND RUNNING NS AT 75 ML/HR. ALL SAFETY MEASURES IN PLACE. BED LOCKED IN THE LOWEST POSITION. CALL LIGHT AND TABLE IN EASY REACH. SIDE RAILS UP TIMES 2. BED ALARM ON. WILL CONTINUE TO MONITOR / ASSIST
[2023-01-30 07:14] LABS: BASOPHILS # (AUTO) 0.1 K/uL (0.0-0.2); BASOPHILS % (AUTO) 0.8 % (0.0-2.0); EOSINOPHILS % (AUTO) 3.9 % (0.0-6.0); HEMATOCRIT 35 % (33-45); HEMOGLOBIN 11.5 g/dL (11.5-14.8); LYMPHOCYTES # (AUTO) 2.6 K/uL (0.8-4.8); LYMPHOCYTES % (AUTO) 30.3 % (20.0-44.0); MEAN CORPUSCULAR HGB CONC 33 g/dl (31.0-36.0); MEAN CORPUSCULAR VOLUME 91 fL (82-100); MONOCYTES # (AUTO) 0.7 K/uL (0.1-1.30); MONOCYTES % (AUTO) 8.8 % (2.0-12.0); NEUTROPHILS # (AUTO) 4.8 K/uL (1.8-8.9); NEUTROPHILS % (AUTO) 56.2 % (43.0-81.0); PLATELET COUNT (AUTO) 293 K/uL (150-450); RED BLOOD CELL COUNT(AUTO) 3.87 MIL/uL (4.0-5.2); WHITE BLOOD COUNT (AUTO) 8.5 K/uL (4.3-11.0)
[2023-01-30 07:32] LABS: CALCIUM, SERUM 8.5 mg/dL (8.5-10.1); MAGNESIUM 2.2 mg/dL (1.8-2.4); PHOSPHORUS 3.8 mg/dL (2.5-4.9); POTASSIUM 3.6 mmol/L (3.5-5.1)
[2023-01-30] MEDS: LEVOTHYROXINE SODIUM 75 MCG TABLET PO SCH (07:38)
[2023-01-30] MEDS: DOCUSATE SODIUM 100 MG CAPSULE PO SCH (09:03)
[2023-01-30] MEDS: LamoTRIgine 100 MG TABLET PO SCH (09:03)
[2023-01-30] MEDS: VENLAFAXINE XR 150 MG CAP.SR.24H PO SCH (09:04)
[2023-01-30] MEDS: OXYBUTYNIN CHLORIDE 5 MG TABLET PO SCH (09:04)
[2023-01-30 09:05] VITALS: BP 150/75
[2023-01-30] MEDS: AMLODIPINE BESYLATE 5 MG TABLET PO SCH (09:05)
--- NOTE | 2023-01-30 10:59 | NUR ---
WOUND CARE CONSULT: PT PRESENTS WITH LEFT ARM DRY SCAB, PRESENT ON ADMISSION. NO DRAINAGE, TENDERNESS OR ERYTHEMA NOTED. WILL SEE PRN.
--- NOTE | 2023-01-30 13:45 | NUR ---
SENIOR STOCK PLAN ADMINISTRATOR NOTE PT DISCHARGED BACK TO ASSISTED LIVING FACILITY WHERE SHE PREVIOUSLY RESIDED IV REMOVED ID [id number] BAND REMOVED ALL BELONGINGS AND VALUABLES GIVEN. ALL DISCHARGE ORDERS REVIEWED AND UNDERSTOOD. SKIN INTACT NO PHOTOS REQUIRED. ESCORTED OFF UNIT BY AMBULANCE STAFF.
== END 2023-01-30 14:30 | DRG 689 ==
LOC: ER 19:03 → MED 22:45
PROVIDERS: ADMIT Nurse Practitioner Acute Care
DX: N39.0 Urinary tract infection, site not specified (principal); G93.41 Metabolic encephalopathy; I10 Essential (primary) hypertension; E03.9 Hypothyroidism, unspecified; Z20.822 Contact with and (suspected) exposure to COVID-19; E78.5 Hyperlipidemia, unspecified; Z88.6 Allergy status to analgesic agent; Z79.899 Other long term (current) drug therapy; E88.09 Other disorders of plasma-protein metabolism, not elsewhere classified; F32.9 Major depressive disorder, single episode, unspecified; B96.89 Other specified bacterial agents as the cause of diseases classified elsewhere
CPT/HCPCS: 36415; 70450-TC; 71045-TC; 80048-TC; 80061-TC; 80076-TC; 81001; 83605-TC; 83735-TC; 84100-TC; 84484-TC; 85025-TC; 85730-TC; 87040-TC; 87081-TC; 87086-TC; A4223; C9803; G0378; J0696; J1650; J7030; J7040; J7060